=== PATIENT | female | born 1990 | race Caucasian/White ===

== ENCOUNTER 2019-03-19 22:23 | Emergency (ER) | payer OTHER ==
[2019-03-19] MEDS: KETOROLAC 30 MG INJ IM (23:38)
== END 2019-03-20 00:47 | disposition home or self-care (01) ==
LOC: FTE 03-20 00:47
DX: S93.431A Sprain of tibiofibular ligament of right ankle, initial encounter (principal); W18.39XA Other fall on same level, initial encounter; Y92.9 Unspecified place or not applicable
CPT/HCPCS: 73610; 73610-RT; 81025; 96372; 99284-25